=== PATIENT | male | born 1960 | race Caucasian/White ===

== ENCOUNTER → 2021-04-17 15:41 | Outpatient (CLI) | payer OTHER, SELFPAY ==
--- NOTE | ~2021-04-17 | XR_ITS ---
EXAMINATION: XR shoulder RT min 2V DATE: 04/17/2021 15:57 INDICATION: Right shoulder pain TECHNIQUE: AP internally and externally rotated, AP oblique externally rotated and axillary views of the right shoulder were obtained. COMPARISON: None FINDINGS: Normal alignment at the right shoulder. No fracture. Glenohumeral joint is normal. Mild acromioclavi cular osteoarthritis. Bone island at the right humeral head. Small lung volumes with no focal airspac e opacities, pleural effusion or pneumothorax in the visualized lungs which excludes the lateral left hemithorax. Soft tissues are unremarkable. IMPRESSION: Mild right acromioclavicular osteoarthritis. Reviewed, dictated and finalized at location A. E [facility]ACTITION[facility] PER DIEM
== END ==
PROVIDERS: PCP Nurse Practitioner Family; Visit Provider Nurse Practitioner Family
DX: M19.011 Primary osteoarthritis, right shoulder (principal)
CPT/HCPCS: 73030

== ENCOUNTER 2021-05-24 01:36 | Day surgery (SDC) | payer OTHER, SELFPAY ==
[2021-05-18 08:17] VITALS: BMI 34.4
[2021-05-24 06:50] VITALS: BP 148/75; PULSE 84; RESP 18; TEMP 36.8; O2SAT 98; BMI 35.4
--- NOTE | 2021-05-24 07:10 | WPDANESEPPF ---
Anes - Initial Pre Proc Eval Procedure: Operation Date: 05/24/21 08:00 Proposed Procedures p Screening Colonoscopy - Modesto Kerr MD Date/Time: 05/24/21 07:10 Surgeon: Modesto Kerr MD Pre Op Diagnosis: neoplasm screening Patient Data Age: 61 Gender: M Height: 1.78 m Weight: 112 kg Last Vital Signs Temp 36.8 C 05/24/21 06:50 Pulse 84 05/24/21 06:50 Resp 18 05/24/21 06:50 BP 148/75 H 05/24/21 06:50 Pulse Ox 98 05/24/21 06:50 Allergies Allergy/AdvReac Type Severity Reaction Status Date / Time simvastatin Allergy Unknown unknown Verified 05/24/21 06:57 Cultivated Oat Pollen Allergy Unknown Unknown Uncoded 05/18/21 08:18 Dust Allergy Unknown Unknown Uncoded 05/18/21 08:18 Home Medications Medication Instructions Recorded Confirmed Type B-complex with vitamin C 1 cap PO DAILY 08/27/19 05/18/21 History calcium citrate 250 mg PO DAILY 08/27/19 05/18/21 History cetirizine 10 mg tablet 10 mg PO DAILY 08/27/19 05/18/21 History pzbptexssmz-aapfvnnox-iic C-Mn 500 1 cap PO DAILY 08/27/19 05/18/21 History mg-400 mg capsule vitamin E 200 unit capsule 200 unit PO DAILY 10/08/19 05/18/21 History epinephrine 0.3 mg/0.3 mL 0.3 mg IM ONCE #2 ea 08/17/20 05/18/21 Rx injection, auto-injector atorvastatin 40 mg tablet 40 mg PO DAILY #90 tablet 12/13/20 05/18/21 Rx coQ10 (ubiquinol) 200 mg PO DAILY 05/18/21 05/18/21 History hydrochlorothiazide 12.5 mg PO DAILY 05/18/21 05/18/21 History lisinopril 10 mg PO DAILY 05/18/21 05/18/21 History Patient hx anesthesia problems: none Family hx anesthesia problems: none Results Review: All pre-operative results and documents have been reviewed as part of the pre-operative evaluation. [facility] Past Medical History Medical History Arthritis BMI 34.0-34.9,adult H/O elevated lipids Surgical History Surgical History H/O colectomy H/O knee surgery History of appendectomy Family History Family History Mother Family history of type 2 diabetes mellitus Family history of thyroid disease, Onset Age: 95 Diabetes mellitus, Onset Age: 95 Hypertension, Onset Age: 95 Sibling Family history of type 2 diabetes mellitus Father Cerebrovascular accident, Onset Age: 65 Patient's father is Family history of elevated blood lipids, Onset Age: 65 Acute myocardial infarction, Onset Age: 65 Social History Social History Smoking status: Never smoker Second hand tobacco smoke exposure: Yes Alcohol intake: current Drinks per week: 7 Substance use: never Substance use type: does not use Living arrangements: with family 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 Informed Consent: The patient's anesthetic plan and its attendant risks and benefits were discussed with the patient/family/POA. Questions were solicited and answers provided to the satisfaction of the patient/family/POA.
[2021-05-24] MEDS: LACTATED RINGERS 1,000 ML 150 ML IV CONT (07:11)
--- NOTE | 2021-05-24 07:17 | PM.HPGS ---
History of Present Illness History of Present Illness Consent: Risks, benefits, and alternatives have been discussed and questions answered. Patient agrees to proceed with procedure. Chief complaint: neoplasm screening Narrative: Johnathon Granados is a 61 year old male Referred for colon cancer screening Review of Systems Review of Systems: All systems reviewed & are unremarkable except as noted in HPI and below PMFSH Past Medical History Medical History Arthritis BMI 34.0-34.9,adult H/O elevated lipids Surgical History Surgical History H/O colectomy H/O knee surgery History of appendectomy Family History Family History Mother Family history of type 2 diabetes mellitus Family history of thyroid disease, Onset Age: 95 Diabetes mellitus, Onset Age: 95 Hypertension, Onset Age: 95 Sibling Family history of type 2 diabetes mellitus Father Cerebrovascular accident, Onset Age: 65 Patient's father is Family history of elevated blood lipids, Onset Age: 65 Acute myocardial infarction, Onset Age: 65 Social History Social History Smoking status: Never smoker Second hand tobacco smoke exposure: Yes Alcohol intake: current Drinks per week: 7 Substance use: never Substance use type: does not use Living arrangements: with family 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 Gender identity (if verbalized by the patient): Male Spiritual care concerns: No Meds Home Medications and Allergies Home Medications Medication Instructions Recorded Confirmed Type B-complex with vitamin C 1 cap PO DAILY 08/27/19 05/18/21 History calcium citrate 250 mg PO DAILY 08/27/19 05/18/21 History cetirizine 10 mg tablet 10 mg PO DAILY 08/27/19 05/18/21 History ptbvdbvlpan-rohdussnb-rmj C-Mn 500 1 cap PO DAILY 08/27/19 05/18/21 History mg-400 mg capsule vitamin E 200 unit capsule 200 unit PO DAILY 10/08/19 05/18/21 History epinephrine 0.3 mg/0.3 mL 0.3 mg IM ONCE #2 ea 08/17/20 05/18/21 Rx injection, auto-injector atorvastatin 40 mg tablet 40 mg PO DAILY #90 tablet 12/13/20 05/18/21 Rx coQ10 (ubiquinol) 200 mg PO DAILY 05/18/21 05/18/21 History hydrochlorothiazide 12.5 mg PO DAILY 05/18/21 05/18/21 History lisinopril 10 mg PO DAILY 05/18/21 05/18/21 History Allergies Allergy/AdvReac Type Severity Reaction Status Date / Time simvastatin Allergy Unknown unknown Verified 05/24/21 06:57 Cultivated Oat Pollen Allergy Unknown Unknown Uncoded 05/18/21 08:18 Dust Allergy Unknown Unknown Uncoded 05/18/21 08:18 Vital Signs Vital Signs - 24 hr 05/24/21 06:50 Temperature 36.8 C Pulse Rate 84 Respiratory Rate 18 Blood Pressure 148/75 H Pulse Oximetry 98 Exam Resp: Auscultation: clear to auscultation bilaterally Cardio: Rate: regular rate Rhythm: regular rhythm GI: GI Palp: Yes Soft to palpation and No Tenderness to palpation present (GI) Assessment and Plan Assessment and plan (1) Screening for malignant neoplasm of colon: Code(s): Z12.11 - Encounter for screening for malignant neoplasm of colon Status: Acute Assessment and Plan: Colonoscopy with possible biopsy or polypectomy or cautery or injection of substances.
[2021-05-24 08:15] VITALS: BP 143/71; PULSE 78; RESP 16; O2SAT 98
[2021-05-24 08:25] VITALS: BP 143/75; PULSE 72; RESP 19; O2SAT 100
[2021-05-24 08:35] VITALS: BP 146/78; PULSE 73; RESP 16; O2SAT 100
== END 2021-05-24 08:46 | disposition home or self-care (01) ==
PROVIDERS: PCP Nurse Practitioner Family; Visit Provider Internal Medicine Gastroenterology
PROC: 0DJD8ZZ Inspection of Lower Intestinal Tract, Via Natural or Artificial Opening Endoscopic (ICD-10-PCS; CPT 45378; principal; 2021-05-24 08:00)
DX: Z12.11 Encounter for screening for malignant neoplasm of colon (principal); K63.5 Polyp of colon; Z90.49 Acquired absence of other specified parts of digestive tract; E66.9 Obesity, unspecified; Z68.35 Body mass index [BMI] 35.0-35.9, adult
CPT/HCPCS: 45380; 45385; 88305; J2704; J7120

== ENCOUNTER → 2021-09-06 08:05 | Outpatient (CLI) | payer OTHER, SELFPAY ==
--- NOTE | ~2021-09-06 | XR_ITS ---
XR thoracic spine 2V DATE: 09/06/2021 08:31 INDICATION: Back pain, neck pain TECHNIQUE: AP, lateral, swimmer views COMPARISON: None FINDINGS: There is slight dextroscoliosis of the thoracic spine. There is mild to moderate degenerative spurring of the mid and lower thoracic spine. No fracture or bone destruction. The thoracic pedicles are intact. No paraspinal soft tissue thickeni ng. IMPRESSION: Slight dextroscoliosis Mild to moderate degenerative spurring Reviewed, dictated and finalized at location A.
--- NOTE | ~2021-09-06 | XR_ITS ---
XR_CERV2-3V_CR DATE: 09/06/2021 08:31 INDICATION: Neck pain TECHNIQUE: AP, open-mouth, lateral views COMPARISON: None FINDINGS: There is straightening of the cervical spine, consistent with muscle spasm. There is moderately prominent degenerative disc disease at C4-5 and C6-7, and mild degenerative disc disease at C3-4, C5-6. There is associated minimal retrolisthesis at C3-4, C4-5 and C5-6. Prominent uncovertebral joint spurring is noted at C3-4 and C4-5. C1 and C2 are normally aligned and the odontoid process is intact. No fracture or dislocation or lock ed facet or prevertebral soft tissue swelling is evident. IMPRESSION: Straightening of the cervical spine consistent with muscle spasm Multilevel degenerative disc disease most prominent at C4-5 and C6-7 Uncovertebral joint spurring particularly at C3-4 and C4-5 Reviewed, dictated and finalized at Location [facility]. Reviewed, dictated and finalized at location A.
== END ==
PROVIDERS: PCP Family Medicine; Visit Provider Nurse Practitioner Family
DX: M50.323 Other cervical disc degeneration at C6-C7 level (principal); G89.29 Other chronic pain
CPT/HCPCS: 72040; 72070

== ENCOUNTER → 2021-09-19 16:00 | Outpatient (CLI) | payer OTHER, SELFPAY ==
--- NOTE | ~2021-09-19 | MR_ITS ---
EXAMINATION: MR thoracic spine wo con DATE: 09/19/2021 17:17 INDICATION: Pain in the neck with extension in between the shoulder blades. Limited mobility in the b ilateral arms. No trauma. TECHNIQUE: Magnetic resonance imaging (MRI) of the thoracic spine was performed without intravenous c ontrast. Sagittal localizer T1-weighted FSE of the cervical spine was obtained. Thoracic spine sequen juana included sagittal T2-weighted FSE, sagittal T1-weighted FSE, sagittal T2-weighted FS FSE, and axi al T2-weighted FSE. COMPARISON: X-ray thoracic spine 09/06/2021 FINDINGS: Vertebral bodies are aligned. Vertebral body heights are maintained. Marrow signal is benig n. Intraosseous hemangioma in T10. Conus terminates at L1. Cord caliber and signal is normal. Multile chastity disc space narrowing, disc dehydration, and marginal osteophytosis. T1-T2: No significant bulge, facet arthropathy, or central or neural foraminal canal narrowing. T2-3: Minimal right paracentral disc protrusion at T2-3. No significant facet arthropathy or central canal narrowing. Mild right neural foraminal narrowing. T3-4: 3 mm left paracentral disc protrusion at T3-4 that contacts and slightly deforms the cord. No s ignificant facet arthropathy or neural foraminal narrowing. T4-5: 2 mm right paracentral disc protrusion at T4-5. No significant facet arthropathy. Mild right ne ural foraminal narrowing. T5-6: 3 mm left paracentral disc protrusion at T5-6 contacts and slightly deforms the cord. No signif icant facet arthropathy or neural foraminal narrowing. T6-7: 4 mm right paracentral disc extrusion at T6-7 that contacts and minimally deforms the cord. No significant facet arthropathy or neural foraminal narrowing. T7-8: 3 mm right paracentral disc protrusion that contacts and minimally deforms the cord. Mild facet arthropathy. No neural foraminal narrowing. T8-9: Tiny central protrusion at T8-9. No significant central canal narrowing. Mild facet arthropathy . T9-10: 4 mm right paracentral protrusion at T9-10. Moderate facet arthropathy with an anteriorly dire cted synovial cyst on the left. No significant central canal or neural foraminal narrowing. T10-11: No significant disc bulge. Mild facet arthropathy. No significant central canal or neural for aminal narrowing. T11-12: No significant disc bulge. Mild facet hypertrophy. No significant central canal or neural for aminal narrowing. T12-L1: No significant disc bulge. Moderate facet arthropathy. No significant central canal or neural foraminal narrowing. IMPRESSION: 1. Multilevel degenerative disc disease in the thoracic spine with small disc protrusions and extrusi ons cause multilevel mild central canal stenosis as described above. 2. Mild neural foraminal narrowing on the right at T2-3 and T4-5. 3. Multilevel facet arthropathy. Reviewed, dictated and finalized at location K. IMPRESSION: 1. Multilevel degenerative disc disease in the thoracic spine with small disc p rotrusions and extrusions cause multilevel mild central canal stenosis as descr ibed above. 2. Mild neural foraminal narrowing on the right at T2-3 and T4-5. 3. Multilevel facet arthropathy.
--- NOTE | ~2021-09-19 | MR_ITS ---
EXAMINATION: MR cervical spine wo con DATE: 09/19/2021 17:13 INDICATION: Pain in the neck in between the shoulder blades, limited mobility and bilateral arms. No history of trauma. TECHNIQUE: Magnetic resonance imaging (MRI) of the cervical spine was performed without intravenous c ontrast. Sequences included sagittal T2-weighted FSE, sagittal T2-weighted FS FSE, sagittal T1-weight ed FSE, axial MERGE, and axial T2-weighted FSE. COMPARISON: X-ray cervical spine 01/05/2013. FINDINGS: Craniocervical association and atlantoaxial joint are intact, with associated moderate dege nerative change. Minimal prevertebral effusion anterior to C1, presumably reactive. Loss of the lauren l lordosis. Normal alignment. Vertebral body heights are maintained. Multilevel disc space narrowing and disc dehydration. The cord signal is normal. The following disc levels are specifically discussed : C2-C3: Mild diffuse bulge There is mild right uncovertebral joint osteoarthritis. There is mild bilat eral facet joint osteoarthritis. There is mild right neural foraminal stenosis. There is no central c anal stenosis. C3-C4: Moderate diffuse bulge. There is moderate bilateral uncovertebral joint osteoarthritis. There is moderate right and mild left facet joint osteoarthritis. There is severe bilateral neural foramina l stenosis. There is severe central canal stenosis. C4-C5: Moderate diffuse bulge. There is moderate bilateral uncovertebral joint osteoarthritis. There is moderate bilateral facet joint osteoarthritis. There is severe left and moderate right neural fora inge stenosis. There is moderate central canal stenosis. C5-C6: Moderate diffuse bulge. There is severe right and mild left uncovertebral joint osteoarthritis . There is moderate bilateral facet joint osteoarthritis. There is moderate right neural foraminal st enosis. There is mild central canal stenosis. C6-C7: Moderate diffuse bulge with a central protrusion that contacts the cord. There is moderate ismael ateral uncovertebral joint osteoarthritis. There is mild bilateral facet joint osteoarthritis. There is severe left and mild right neural foraminal stenosis. There is severe central canal stenosis. C7-T1: The disc does not extend beyond the endplate margin. There is mild right uncovertebral joint o steoarthritis. There is mild bilateral facet joint osteoarthritis. There is mild right neural foramin al stenosis. There is no central canal stenosis. IMPRESSION: 1. Severe central canal stenosis at C3-4 and C6-7. 2. Severe neural foraminal narrowing bilaterally at C3-4 and on the left at C4-5 and C6-7. 3. Additional mild to moderate degrees of degenerative change and central canal/neural foraminal sten oses at multiple levels, described above. Reviewed, dictated and finalized at location K. IMPRESSION: 1. Severe central canal stenosis at C3-4 and C6-7. 2. Severe neural foraminal narrowing bilaterally at C3-4 and on the left at C4- 5 and C6-7. 3. Additional mild to moderate degrees of degenerative change and central canal /neural foraminal stenoses at multiple levels, described above.
== END ==
PROVIDERS: PCP Family Medicine; Visit Provider Nurse Practitioner Family
DX: M54.2 Cervicalgia (principal); R29.898 Other symptoms and signs involving the musculoskeletal system; M51.34 Other intervertebral disc degeneration, thoracic region
CPT/HCPCS: 72141; 72146